=== PATIENT | male | born 1975 | race Caucasian/White ===

== ENCOUNTER 2017-08-12 13:52 | Emergency (ER) | payer SELFPAY ==
[~2017-08-12] VITALS: Ht 152.4 cm; Wt 67.6 kg
[2017-08-12] MEDS ORDERED: ALPRAZolam 0.5 MG (XANAX) TAB PO SCH (14:00)
[2017-08-12] MEDS ORDERED: OLANZapine 5 MG ODT (ZyPREXA ZYDIS) PO ONE ×2 (14:00→14:45)
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
[2017-08-12 14:12] LABS: BASOPHILS # (AUTO) 0.1 10^3/uL (0.0-0.1); BASOPHILS % (AUTO) 1 % (0-10); EOSINOPHILS % (AUTO) 1 % (0-10); LYMPHOCYTES # (AUTO) 2.1 X 10^3 (1.0-4.0); LYMPHOCYTES % (AUTO) 24 % (12-44); MEAN CORPUSCULAR HEMOGLOBIN 31 PG (25-34); MEAN CORPUSCULAR HGB CONC 34 G/DL (32-36); MEAN CORPUSCULAR VOLUME 90 FL (80-99); MEAN PLATELET VOLUME 9.7 FL (7.4-10.4); MONOCYTES # (AUTO) 0.7 X 10^3 (0.0-1.0); MONOCYTES % (AUTO) 8 % (0-12); NEUTROPHILS # (AUTO) 5.7 X 10^3 (1.8-7.8); NEUTROPHILS % (AUTO) 66 % (42-75); PLATELET COUNT 257 10^3/uL (130-400); RED BLOOD COUNT 4.48 10^6/uL (4.35-5.85); RED CELL DISTRIBUTION WIDTH 13.3 % (10.0-14.5); WHITE BLOOD COUNT 8.6 10^3/uL (4.3-11.0)
[2017-08-12 14:18] LABS: BILIRUBIN,URINE NEGATIVE (NEGATIVE); KETONES,URINE 3+ (NEGATIVE); LEUKOCYTE ESTERASE ,URINE 1+ (NEGATIVE); NITRITE,URINE NEGATIVE (NEGATIVE); PH,URINE 5 (5-9); PROTEIN,URINE 1+ (NEGATIVE); UROBILINOGEN,URINE 1 MG/DL (NORMAL)
[2017-08-12 14:27] LABS: HYALINE CASTS, URINE RARE /LPF
[2017-08-12 14:33] LABS: ALANINE AMINOTRANSFERASE 25 U/L (0-55); ALBUMIN 4.2 GM/DL (3.2-4.5); ALCOHOL < 10 MG/DL (<10); ANION GAP 12 MMOL/L (5-14); ASPARTATE AMINO TRANSFERASE 50 U/L (5-34); BILIRUBIN,TOTAL 0.6 MG/DL (0.1-1.0); BLOOD UREA NITROGEN 19 MG/DL (7-18); BUN/CREATININE RATIO 21; CALCIUM 9.1 MG/DL (8.5-10.1); CARBON DIOXIDE 23 MMOL/L (21-32); CHLORIDE 102 MMOL/L (98-107); CREATININE SERUM 0.91 MG/DL (0.60-1.30); GFR ESTIMATED > 60; GLUCOSE 95 MG/DL (70-105); POTASSIUM 3.7 MMOL/L (3.6-5.0); SALICYLATE < 5.0 MG/DL (5.0-20.0); SODIUM 137 MMOL/L (135-145); TOTAL PROTEIN 7.4 GM/DL (6.4-8.2)
[2017-08-12 14:43] LABS: ACETAMINOPHEN < 10 UG/ML (10-30)
[2017-08-12 15:12] VITALS: BP 110/70
== END 2017-08-12 15:13 | disposition home or self-care (01) ==
LOC: EDUNIT# 13:52 → ER 13:54
DX: F22 Delusional disorders (principal); F60.0 Paranoid personality disorder; F15.10 Other stimulant abuse, uncomplicated
CPT/HCPCS: 36415; 80053; 80306; 80320; 80329; 81000; 85025; 99283

== ENCOUNTER 2017-08-13 07:36 | Emergency (ER) | payer SELFPAY ==
[~2017-08-13] VITALS: Ht 172.7 cm; Wt 63.5 kg
[2017-08-13 08:01] LABS: BILIRUBIN,URINE NEGATIVE (NEGATIVE); KETONES,URINE 3+ (NEGATIVE); LEUKOCYTE ESTERASE ,URINE NEGATIVE (NEGATIVE); NITRITE,URINE NEGATIVE (NEGATIVE); PH,URINE 5 (5-9); PROTEIN,URINE NEGATIVE (NEGATIVE); UROBILINOGEN,URINE NORMAL (NORMAL)
[2017-08-13] MEDS ORDERED: NS IV 1000 ML 1,000 ML IV ONE (08:02)
[2017-08-13 08:12] LABS: SQUAMOUS EPITHELIAL CELL,UR RARE /HPF
[2017-08-13 08:13] LABS: BASOPHILS % (AUTO) 1 % (0-10); EOSINOPHILS # (AUTO) 0.1 10^3/uL (0.0-0.3); EOSINOPHILS % (AUTO) 1 % (0-10); LYMPHOCYTES # (AUTO) 1.7 X 10^3 (1.0-4.0); LYMPHOCYTES % (AUTO) 27 % (12-44); MEAN CORPUSCULAR HEMOGLOBIN 31 PG (25-34); MEAN CORPUSCULAR HGB CONC 34 G/DL (32-36); MEAN CORPUSCULAR VOLUME 92 FL (80-99); MEAN PLATELET VOLUME 9.8 FL (7.4-10.4); MONOCYTES # (AUTO) 0.2 X 10^3 (0.0-1.0); MONOCYTES % (AUTO) 4 % (0-12); NEUTROPHILS # (AUTO) 4.4 X 10^3 (1.8-7.8); NEUTROPHILS % (AUTO) 68 % (42-75); PLATELET COUNT 245 10^3/uL (130-400); RED BLOOD COUNT 4.78 10^6/uL (4.35-5.85); RED CELL DISTRIBUTION WIDTH 13.4 % (10.0-14.5); WHITE BLOOD COUNT 6.5 10^3/uL (4.3-11.0)
[2017-08-13] MEDS ORDERED: hydrOXYzine (VISTARIL) 25 MG CAP PO ONE ×2 (08:15→19:00)
[2017-08-13 08:31] LABS: ALANINE AMINOTRANSFERASE 27 U/L (0-55); ALBUMIN 4.1 GM/DL (3.2-4.5); ALCOHOL < 10 MG/DL (<10); ANION GAP 15 MMOL/L (5-14); ASPARTATE AMINO TRANSFERASE 37 U/L (5-34); BILIRUBIN,TOTAL 0.7 MG/DL (0.1-1.0); BLOOD UREA NITROGEN 21 MG/DL (7-18); BUN/CREATININE RATIO 21; CALCIUM 9.2 MG/DL (8.5-10.1); CARBON DIOXIDE 23 MMOL/L (21-32); CHLORIDE 103 MMOL/L (98-107); CREATININE SERUM 1.01 MG/DL (0.60-1.30); GFR ESTIMATED > 60; GLUCOSE 134 MG/DL (70-105); POTASSIUM 3.3 MMOL/L (3.6-5.0); SALICYLATE < 5.0 MG/DL (5.0-20.0); SODIUM 141 MMOL/L (135-145); TOTAL PROTEIN 7.2 GM/DL (6.4-8.2)
[2017-08-13 08:33] LABS: ACETAMINOPHEN < 10 UG/ML (10-30)
--- NOTE | 2017-08-13 08:35 | ED Psychosocial ---
General Chief Complaint: Psych/Social Disorder Stated Complaint: SUICIDAL IDEATIONS Nursing Triage Note: PT TO TRIAGE DESK STATES"HE TRIED TO KILL HIMSELF IN BATHROOM AT HOSPITAL WITH OWN BELT." PT TO ROOM 8 GATE CLOSED, ALL REMOVABLE ITEMS REMOVED FROM RM. PT OWN CLOTHING REMOVED EXCEPT SOCKS AND UNDERWARE. PT HAS SLEPT OUT IN LOBBY OF ED SINCE APPROX 1600 YESTERDAY AFTER BEING SEEN AND CLEARED BY ED PROVIDER. HE DENIED BEING SUICIDAL OR HOMICIDAL. Source: patient Exam Limitations: no limitations (SUSHMA LUCAS MD) History of Present Illness Time seen by provider: 07:45 Initial Comments Seen here yesterday for depression symptoms. Patient ultimately decided not to stay. He stated and around the hospital throughout the night. This morning he woke up and was going to the cafeteria when he decided that he wanted to kill himself. He states that he went into one of the hospital bathrooms and wrapped his belt around his neck and was going to hang himself but stopped at the last minute. Afterwards, he went ahead and got a drink at the cafeteria and came to the ER and checked in for suicidal ideations. States that this is all related to the fact that he misses his children and has difficulty with coping with life. He is from [place], [place]. He reports that he has had previous admissions for suicidal ideations or attempts and has cut his wrist a few times to try to kill himself. He is supposed to be on medicines but has been off of him for a month or more. Denies recent drug use or alcohol use. Denies other injuries or concerns currently. Timing/Duration: yesterday, getting worse Severity: moderate, severe Associated Symptoms: suicidal ideation (SUSHMA LUCAS MD) Allergies and Home Medications Allergies Coded Allergies: No Known Drug Allergies (Unverified , 08/12/17) Constitutional: see HPI, No chills, No fever EENTM: no symptoms reported Respiratory: no symptoms reported Cardiovascular: no symptoms reported Gastrointestinal: no symptoms reported Genitourinary: no symptoms reported Musculoskeletal: no symptoms reported Skin: no symptoms reported Psychiatric/Neurological: See HPI, Anxiety, Emotional Problems (SUSHMA LUCAS MD) All Other Systems Reviewed Negative Unless Noted: Yes (SUSHMA LUCAS MD) Past Tleijvw-Swzaca-Dbiyhh Hx Patient Social History Alcohol Use: Occasionally Uses Number of Drinks Today: 0 Recreational Drug Use: Yes (5 DAYS AGO) Drug of Choice: METH Smoking Status: Current Everyday Smoker Recent Foreign Travel: No Contact w/Someone Who Travel: No Recent Infectious Disease Expo: No Physical Abuse: No Sexual Abuse: No (SUSHMA LUCAS MD) Surgeries History of Surgeries: Yes Surgeries: Orthopedic (SUSMHA LUCAS MD) Respiratory History of Respiratory Disorde: No (SUSHMA LUCAS MD) Cardiovascular History of Cardiac Disorders: No (SUSHMA LUCAS MD) Neurological History of Neurological Disord: No (SUSHMA LUCAS MD) Gastrointestinal History of Gastrointestinal Di: No (SUSHMA LUCAS MD) Musculoskeletal History of Musculoskeletal Dis: No (SUSHMA LUCAS MD) Endocrine History of Endocrine Disorders: No (SUSHMA LUCAS MD) Psychosocial History of Psychiatric Problem: Yes Behavioral Health Disorders: Suicide Attempts, Depression Suicide Risk Score: 7 Suicide Risk Notes: PT REMOVED CLOTHING, PT PUT IN ROOM 8 W GATE DOWN AND ROOM CLEARED ALL REMOVEABLE ITEMS (SUSHMA LUCAS MD) Reviewed Nursing Assessment Reviewed/Agree w Nursing PMH: Yes (SUSHMA LUCAS MD) Family Medical History Significant Family History: No Pertinent Family Hx (SUSHMA LUCAS MD) Physical Exam Vital Signs Vital Sign - Last 12Hours 08/13/17 08/13/17 07:45 21:13 Temp 97.4 Pulse 109 Resp 18 B/P (MAP) 115/79 Pulse Ox 100 O2 Delivery Room Air (JESSI HOPKINS MD) Vital Signs Capillary Refill : Less Than 3 Seconds (SUSHMA LUCAS MD) General Appearance: WD/WN, no apparent distress HEENT: PERRL/EOMI, pharynx normal Neck: full range of motion, supple Respiratory: lungs clear, normal breath sounds Cardiovascular: no murmur, tachycardia Gastrointestinal: non tender, soft Extremities: non-tender, normal inspection Neurologic/Psychiatric: alert, oriented x 3 Appearance/Memory: no memory impairment, disheveled Behavior/Eye Contact: cooperative, good eye contact, normal speech Thoughts/Hallucinations: normal thought pattern, no apparent hallucination Skin: normal color, warm/dry (SUSHMA LUCAS MD) Progress/Results/Core Measures Results/Orders Lab Results (JESSI HOPKINS MD) My Orders (JESSI HOPKINS MD) Medications Given in ED (JESSI HOPKINS MD) Vital Signs/I&O (JESSI HOPKINS MD) Blood Pressure Mean: 91 Progress Note : Progress Note Seen and evaluated. Patient believes that he is still associated risk. He the radiologist that he would like inpatient admission and evaluation related to his suicidality. Normal saline 1 L bolus ordered. Patient is complaining of anxiety and is asking for medication help. Hydroxyzine 25 mg by mouth given. Monitor patient. 1026 patient resting comfortably. Medically cleared for psychiatric admission. Tolerated full breakfast without difficulty. We are pursuing inpatient placement. [facility] has a wait list of 10 currently. We will try [facility] in [place], [place] next. [facility] has no beds available currently. [id number]: Patient tolerated lunch without difficulty. Still pending bed assignment. 1500: [place] actually digitally has a bed and they will have their physician look at the chart and call us back. 1800: The chart is still being evaluated [place]. Patient has tolerated 3 meals today without difficulty. No acute distress. Patient informed of difficulties with finding a bed and he is still agreeable to inpatient admission. Care transitioned to Dr. Chamberlain pending transfer. 0600: Assumed care of patient pending transfer this morning. No significant changes this morning. Patient is resting comfortably. 0800: Patient has tolerated regular diet breakfast. Reexamination shows lungs clear to auscultation bilaterally, heart regular rate and rhythm without murmurs , abdomen soft and nontender. I did discuss with the patient about transfer and he is still in agreement and very appreciative. Pending EMS transport. 0840: EMS here for transport. (SUSHMA LUCAS MD) Progress Note #1: Time: 20:29 Progress Note I assumed care of this patient from Dr. Lucas at 18:00. Patient was sleeping comfortably at that time. I will patient to reassess him. He states he is still feeling suicidal and very anxious. He states there is a "90 percent chance" that he would harm himself if given the opportunity. Chart is at [facility] in [place], [place] for review. [facility] They have not yet had an opportunity to assess his chart. Earlier in the day they had a 10 bed weight. Patient reported he is essentially homeless with no permanent address. He came to the [place] with a friend who left him here. He is very anxious with PTSD and feels very depressed. He reports a recent admission at [facility] for treatment of depression. He is currently not being treated by anyone with either counseling or medications. He requested more medication for his anxiety. Hydroxyzine was ordered. He also reports problems with hypokalemia. Potassium was ordered for oral replacement. I contacted the [facility] screener who is willing to help us with placement. She will come out to screen the patient. Progress Note #2: Time: 23:35 Progress Note Nursing staff has called numerous psychiatric facilities and finally found acceptance at the [facility] in [place]. Patient was accepted under the service of Dr. De Paz. EMS transfer could not be arranged until morning hours after 08:00. Patient will await transfer until then. He was treated with Xanax for additional complaints of anxiety. [facility] will hold his bed until noon tomorrow. (JESSI HOPKINS MD) ECG Initial ECG Impression Date: Aug 13, 2017 Initial ECG Impression Time: 07:55 Initial ECG Rate: 110 Initial ECG Rhythm: S.Tach Comment Sinus tachycardia with leftward axis. No evidence of ST elevation MS. No previous available for comparison. Interpreted by me. (SUSHMA LUCAS MD) Departure Impression Impression: Primary Impression: Suicidal ideations Additional Impression: Major depression Qualified Codes: F33.2 - Major depressive disorder, recurrent severe without psychotic features Disposition: 02 XFER SHT-TRM HOSP Condition: Stable Transfer Transfer Time: 23:00 Transfer Facility: [place], [place], Dr. De Paz accepting Method of Transfer: EMS (SUSHMA LUCAS MD) Transfer Time: 08:50 (JESSI HOPKINS MD) Departure-Patient Inst. Referrals: NO,LOCAL PHYSICIAN (PCP) Primary Care Physician SUSHMA LUCAS MD Aug 13, 2017 08:35 JESSI HOPKINS MD Aug 13, 2017 20:32
[2017-08-13] MEDS ORDERED: KCL 10 MEQ TAB (MICRO K) PO ONE (19:00)
[2017-08-13 21:13] VITALS: BP 106/78
[2017-08-13] MEDS: ALPRAZolam 0.25 MG (XANAX) TAB PO ONE ×2 (21:32→21:35)
[2017-08-14 00:31] VITALS: BP 102/62
[2017-08-14 08:46] VITALS: BP 102/76
== END 2017-08-14 08:50 | disposition short-term general hospital (02) ==
LOC: EDUNIT# 07:36 → ER 07:39
DX: F32.9 Major depressive disorder, single episode, unspecified (principal); F17.200 Nicotine dependence, unspecified, uncomplicated; F15.90 Other stimulant use, unspecified, uncomplicated; Z91.5 Personal history of self-harm
CPT/HCPCS: 36415; 80053; 80306; 80320; 80329; 81000; 84439; 84443; 85025; 93005; 96360